=== PATIENT | female | born 1950 | race Caucasian/White ===

== ENCOUNTER → 2016-05-18 | Outpatient (CLI) | payer OTHER ==
[~2016-05-18] MED LIST: ALPR1TAB3 PO; EPP3/2 IM; LOSA1TAB38 PO; OMEP40CA36 PO; SERT-234 PO; TRIA37.5 PO
== END | disposition home or self-care (01) ==
LOC: C.PAPS 15:16
PROVIDERS: ATTEND Obstetrics & Gynecology
DX: Z12.4 Encounter for screening for malignant neoplasm of cervix (principal); Z87.42 Personal history of other diseases of the female genital tract

== ENCOUNTER → 2016-05-18 | Outpatient (CLI) | payer OTHER ==
[2016-05-18 15:11] LABS: URINE APPEARANCE CLEAR (CLEAR); URINE BILIRUBIN NEG (NEG); URINE COLOR YELLOW; URINE EPITHELIAL CELL AUTO >30 /lpf (0-5); URINE NITRITE NEG (NEG); URINE PH 7.5 (4.5-7.5); URINE SPECIFIC GRAVITY 1.016 (1.000-1.030); UROBILINOGEN NEG (NEG); ZZUR CULT IF INDIC CLEAN CATCH NO
[2016-05-18 15:17] LABS: MANUAL MICROSCOPIC REQUIRED? NO; REVIEW REQ? NO
== END | disposition home or self-care (01) ==
LOC: C.LABSPEC 14:10
PROVIDERS: ATTEND Obstetrics & Gynecology
DX: N76.0 Acute vaginitis (principal)

== ENCOUNTER → 2016-07-11 | Outpatient (CLI) | payer OTHER | END | disposition home or self-care (01) | LOC: C.LABSPEC 14:22 | PROVIDERS: ATTEND Physician Assistant | DX: N89.8 Other specified noninflammatory disorders of vagina (principal) ==

== ENCOUNTER → 2016-09-04 | Outpatient (CLI) | payer OTHER ==
--- NOTE | 2016-09-05 07:41 | MAMMOGRAPHY REPORT ---
BILATERAL DIGITAL SCREENING MAMMOGRAM TOMOSYNTHESIS WITH CAD: 09/04/2016 CLINICAL HISTORY: Routine screening. Patient has no complaints. TECHNIQUE: Breast tomosynthesis in addition to standard 2D mammography was performed. Current study was also evaluated with a Computer Aided Detection (CAD) system. COMPARISON: Comparison is made to exams dated: 02/07/2016 breast MRI, 08/04/2015 breast MRI, 6 mammogram, 12/10/2014 breast MRI, 11/12/2014 ultrasound, and 05/11/2014 ultrasound - [facility]. BREAST COMPOSITION: The tissue of both breasts is extremely dense, which lowers the sensitivity of m ammography. FINDINGS: There are scattered stable benign-appearing micro-opacifications bilaterally. A stable me tallic biopsy marker in the right upper outer quadrant. No new suspicious mass, architectural distort ion or cluster of microcalcifications is seen. IMPRESSION: ACR BI-RADS CATEGORY 2: BENIGN 1. There is no mammographic evidence of malignancy. A 1 year screening mammogram is recommended. 2. As per prior MRI report recommendations, the patient is due for another follow-up breast MRI in 2016 to ensure stability. The patient will receive written notification of the results. Approximately 10% of breast cancers are not detected with mammography. A negative mammographic report should not delay biopsy if a clinically suggestive mass is present. Marti Ham M.D. ay/:09/04/2016 17:23:41 [employer] Advisor: Kaycee MAZA(Brandon)(Kimberly)(VICKIE), [facility] letter sent: Normal 1/2 BI-RADS Code: ACR BI-RADS Category 2: Benign
== END | disposition home or self-care (01) ==
LOC: C.MAMM 08:21
PROVIDERS: ATTEND Obstetrics & Gynecology
DX: Z12.31 Encounter for screening mammogram for malignant neoplasm of breast (principal)

== ENCOUNTER → 2016-09-25 | Outpatient (CLI) | payer OTHER ==
[2016-09-25 17:44] LABS: BASO % 0.2 %; BASO ABS # 0.01 K/uL (0-0.2); COMPLETE YES; EOS % 3.9 %; HEMATOCRIT 42.4 % (37-47); LYMPH % 38.6 %; LYMPH ABS # 1.99 K/uL (1.2-3.4); MEAN CELL VOLUME 87.8 fL (80-100); MEAN CORPUSCULAR HGB CONC 34.2 g/dl (32-36); MONO % 9.3 %; PLATELET COUNT 220 K/uL (130-400); RED BLOOD COUNT 4.83 M/uL (4.2-5.4); WHITE BLOOD COUNT 5.15 K/uL (4.8-10.8)
[2016-09-25 18:10] LABS: ALT/SGPT 21 U/L (12-78); BLOOD UREA NITROGEN 10 mg/dl (7-18); BUN/CREATININE RATIO 14.4 (10-20); C-REACTIVE PROTEIN 0.42 mg/dl (0-0.29); CALCIUM 9.5 mg/dl (8.5-10.1); CARBON DIOXIDE 31 mmol/L (21-32); CHLORIDE 100 mmol/L (98-107); CHOLESTEROL 182 mg/dl (0-200); CREATININE 0.71 mg/dl (0.60-1.20); GLUCOSE 88 mg/dl (70-99); POTASSIUM 3.4 mmol/L (3.5-5.1); SODIUM 137 mmol/L (136-145); TRIGLYCERIDES 65 mg/dl (0-150); VERY LOW DENSITY LIPOPROT CALC 13 mg/dl
[2016-09-25 18:19] LABS: ALB/GLOB RATIO 1.3 (0.9-2); ALKALINE PHOSPHATASE 58 U/L (45-117); AST/SGOT 19 U/L (15-37); HDL CHOLESTEROL 93 mg/dl; LDL CHOLESTEROL CALCULATED 76 mg/dl
== END | disposition home or self-care (01) ==
LOC: C.LAB1850 16:58
PROVIDERS: ATTEND Internal Medicine
DX: H53.8 Other visual disturbances (principal); I10 Essential (primary) hypertension

== ENCOUNTER → 2016-10-11 | Outpatient (CLI) | payer OTHER ==
--- NOTE | 2016-10-11 11:26 | DIAGNOSTIC IMAGING REPORT ---
BILATERAL CAROTID DOPPLER STUDY HISTORY: BLURRY VISION, HYPERTENSION COMPARISON: None. TECHNIQUE: Real-time, grayscale, and color Doppler sonography of the carotid arteries was performed. Imaging reviewed in the transverse and longitudinal planes. All measurements were calculated based on NASCET criteria. FINDINGS: Antegrade flow is seen in the bilateral vertebral arteries. The brachial pressures are hemodynamically similar. No significant atherosclerotic plaque within the carotid or vertebral arteries. The peak systolic velocity within the right ICA is 59 cm/s. The right systolic ratio is 0.6. The peak systolic velocity within the left ICA is 55 cm/s. The left systolic ratio is 0.6. IMPRESSION: No hemodynamically significant stenosis seen within the carotid arteries. Electronically signed by: Mj Cardenas M.D. 10/11/2016 11:25 AM Dictated Date/Time: 10/11/2016 11:24 AM
== END | disposition home or self-care (01) ==
LOC: C.ULTRBC 10:46
PROVIDERS: ATTEND Internal Medicine
DX: G45.3 Amaurosis fugax (principal); H53.8 Other visual disturbances; I10 Essential (primary) hypertension

== ENCOUNTER → 2016-10-12 | Outpatient (CLI) | payer OTHER ==
--- NOTE | 2016-10-12 10:08 | DIAGNOSTIC IMAGING REPORT ---
BRAIN WITHOUT CONTRAST HISTORY: 65 years-old Female HYPERTENSION, BLURRED VISION COMPARISON: Carotid Doppler 10/11/2016 TECHNIQUE: Multiplanar multisequence MRI of the brain was obtained without IV contrast. FINDINGS: There is no evidence of restricted diffusion to suggest acute ischemia. The midline structures including the corpus callosum, optic chiasm, pituitary gland, brainstem and cerebellum appear unremarkable on the sagittal T1 sequence. 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 Uncovertebral spurring with intervertebral disc space narrowing and facet arthropathy involve the imaged upper cervical spine. There is mild cerebral atrophy with a few scattered subcortical and periventricular white matter foci of subcentimeter T2/FLAIR prolongation suggesting chronic microvascular ischemic changes. No acute intracranial hemorrhage, midline shift, abnormal extra-axial collections or intracranial mass. Flow voids at the skull base appear to be within normal limits. Mastoid air cells and middle ear cavities are clear. Mild mucosal thickening involves the frontal, ethmoid, maxillary and sphenoid sinuses. Orbits are symmetric. IMPRESSION: 1. No acute intracranial abnormality. No acute ischemia. 2. Mild atrophy and chronic microvascular ischemic changes. 3. Mild paranasal sinus disease. The above report was generated using voice recognition software. It may contain grammatical, syntax or spelling errors. Electronically signed by: Tor Connelly M.D. 10/12/2016 10:07 AM Dictated Date/Time: 10/12/2016 10:02 AM
== END | disposition home or self-care (01) ==
LOC: C.MRI 08:50
PROVIDERS: ATTEND Internal Medicine
DX: G45.3 Amaurosis fugax (principal); H53.8 Other visual disturbances; I10 Essential (primary) hypertension

== ENCOUNTER → 2017-03-08 | Outpatient (CLI) | payer OTHER ==
[2017-03-08 17:58] LABS: BLOOD UREA NITROGEN 19 mg/dl (7-18); CREATININE 0.76 mg/dl (0.60-1.20)
== END | disposition home or self-care (01) ==
LOC: C.LAB1850 17:01
PROVIDERS: ATTEND Obstetrics & Gynecology
DX: R92.2 Inconclusive mammogram (principal)

== ENCOUNTER → 2017-03-13 | Outpatient (CLI) | payer OTHER ==
[~2017-03-13] MED LIST changes: +GADAVIST IV PRN
--- NOTE | 2017-03-14 15:40 | MAMMOGRAPHY REPORT ---
BREAST MRI OF BOTH BREASTS : 03/13/2017 CLINICAL HISTORY: Patient has a history of dense breasts and prior benign right breast stereotactic b iopsy. She presents for MRI follow-up of a small 3 x 4 mm focus of enhancement in the 3:00 middle on e third of the left breast. COMPARISON: Comparison is made to exams dated: 09/04/2016 mammogram, 02/07/2016 breast MRI, 03/16/2015 mammogram, 12/10/2014 breast MRI, 11/12/2014 ultrasound, and 05/11/2014 ultrasound - [facility]. TECHNIQUE: Using a 1.5 Shahida magnet and dedicated breast coil, multisequence axial images were obtai kings through the breasts. After uneventful IV administration of 8 mL of Gadavist, dynamic multiphase contrast-enhanced axial images, and sagittal postcontrast were obtained. Temporal subtraction axial images and 3-D MIP images are provided. Everything was then reviewed on a 3-D workstation, [employer]. FINDINGS: Right breast: There is minimal background parenchymal enhancement. There are scattered round and ova l foci of enhancement throughout the right breast, better similar in number and should patient compar ing to prior breast MRIs. No new suspicious enhancing mass, non-mass enhancement, architectural dist ortion or suspicious kinetics identified in the right breast. No focal skin thickening or nipple ret raction. No suspicious right axillary lymphadenopathy. Left breast: There is minimal background parenchymal enhancement. A 3 x 4 mm round enhancing focus i s again identified in the 3:00 middle one third of the left breast, unchanged in size but slightly le ss central enhancement comparing to prior MRIs dating back to 12/10/2014. With greater than 2 years of stability in size this is considered benign. No new suspicious enhancing mass, non-mass enhanceme nt, architectural distortion or suspicious kinetics identified in the left breast. No focal skin thi ckening or nipple retraction. No suspicious left axillary lymphadenopathy. Incidental note is made of trace bilateral dependent pleural fluid. IMPRESSION: ACR BI-RADS CATEGORY 2: BENIGN Stable bilateral breast MRI, including stable size of a 3 x 4 mm enhancing focus in the 3:00 left khanh ast for 2 years, confirming benignity. There is no MRI evidence of malignancy in the breasts. Recom mend continuation of annual screening mammography schedule, due in August 2017. The patient will receive written notification of the results. Marti Ham M.D. ay/:03/13/2017 20:12:01 Butt Sawyer: health consultant, [facility] letter sent: Normal /2 BI-RADS Code: ACR BI-RADS Category 2: Benign
== END | disposition home or self-care (01) ==
LOC: C.MRI 08:20
PROVIDERS: ATTEND Obstetrics & Gynecology
DX: R92.2 Inconclusive mammogram (principal)

== ENCOUNTER → 2017-06-21 | Outpatient (CLI) | payer OTHER ==
[~2017-06-21] MED LIST changes: -GADAVIST IV PRN
== END | disposition home or self-care (01) ==
LOC: C.LABSPEC 11:13
PROVIDERS: ATTEND Obstetrics & Gynecology
DX: N94.9 Unspecified condition associated with female genital organs and menstrual cycle (principal); N76.0 Acute vaginitis

== ENCOUNTER → 2017-06-21 | Outpatient (CLI) | payer OTHER | END | disposition home or self-care (01) | LOC: C.PAPS 12:00 | PROVIDERS: ATTEND Obstetrics & Gynecology | DX: Z12.4 Encounter for screening for malignant neoplasm of cervix (principal) ==

== ENCOUNTER → 2017-06-25 | Outpatient (CLI) | payer OTHER ==
[2017-06-25 10:37] LABS: ALBUMIN 4.2 gm/dl (3.4-5.0); ALT/SGPT 24 U/L (12-78); AST/SGOT 20 U/L (15-37); BLOOD UREA NITROGEN 15 mg/dl (7-18); CARBON DIOXIDE 32 mmol/L (21-32); CREATININE 0.93 mg/dl (0.60-1.20); GLUCOSE 77 mg/dl (70-99); POTASSIUM 3.7 mmol/L (3.5-5.1); SODIUM 139 mmol/L (136-145)
[2017-06-25 10:46] LABS: ALKALINE PHOSPHATASE 52 U/L (45-117); CHOLESTEROL 189 mg/dl (0-200); LDL CHOLESTEROL CALCULATED 72 mg/dl; TOTAL PROTEIN 7.5 gm/dl (6.4-8.2)
== END | disposition home or self-care (01) ==
LOC: C.LAB1850 09:06
PROVIDERS: ATTEND Internal Medicine
DX: I10 Essential (primary) hypertension (principal)

== ENCOUNTER → 2017-09-12 | Outpatient (CLI) | payer OTHER ==
--- NOTE | 2017-09-13 07:58 | MAMMOGRAPHY REPORT ---
BILATERAL DIGITAL SCREENING MAMMOGRAM TOMOSYNTHESIS WITH CAD: 09/12/2017 CLINICAL HISTORY: Routine screening. Patient has no complaints. TECHNIQUE: The study was acquired using full field digital technology and interpreted from soft copy. Breast tomosynthesis in addition to standard 2D mammography was performed. Current study was also ev aluated with a Computer Aided Detection (CAD) system. COMPARISON: Comparison is made to exams dated: 09/04/2016 mammogram, 03/16/2015 mammogram, 03/10/2014 m ammogram, 03/07/2013 mammogram, 08/07/2012 mammogram, and 02/06/2012 mammogram - [facility]. BREAST COMPOSITION: The tissue of both breasts is extremely dense, which lowers the sensitivity of ma mmography. FINDINGS: The glandular tissue pattern is similar to prior exams, with stable asymmetries in the medi al aspect of each breast. There is a stable jeremy-shaped biopsy marker clip in the right upper outer q uadrant, and a stable intramammary lymph node in the right upper outer posterior breast. No new suspi cious mass, architectural distortion or cluster of microcalcifications is seen. IMPRESSION: ACR BI-RADS CATEGORY 2: BENIGN There is no mammographic evidence of malignancy. A 1 year screening mammogram is recommended.( [id number]) The patient will receive written notification of the results. Some breast cancers are not detected with mammography. A negative mammographic report should not triny y biopsy if a clinically suggestive mass is present. Marti Ham M.D. ay/:09/12/2017 16:53:43 Apron Operator: RT Aguila(Brandon)(Kimberly)(BD), [facility] letter sent: Normal 1/2 BI-RADS Code: ACR BI-RADS Category 2: Benign
== END | disposition home or self-care (01) ==
LOC: C.MAMM 14:40
PROVIDERS: ATTEND Obstetrics & Gynecology
DX: Z12.31 Encounter for screening mammogram for malignant neoplasm of breast (principal)